=== PATIENT | male | born 1965 | race Caucasian/White ===

== ENCOUNTER 2024-02-23 15:17 | Inpatient (IN) | payer MEDICAID ==
[~2024-02-23] VITALS: Ht 175.3 cm; Wt 122.5 kg
[2024-02-23] MEDS ORDERED: DEXTROSE 50% 50ML SYRINGE IV PRN (15:30)
[2024-02-23] MEDS ORDERED: GLUCAGON INJ 1MG VIAL SC PRN (15:30)
[2024-02-23] MEDS ORDERED: GLUCOSE 4 GM CHEW PO PRN (15:30)
[2024-02-23] MEDS ORDERED: ONDANSETRON 4MG TAB PO PRN (15:30)
[2024-02-23] MEDS ORDERED: MIRALAX *UNIT DOSE* 17GM PACKET PO PRN (15:30)
[2024-02-23] MEDS ORDERED: ACETAMINOPHEN TAB 650MG DOSE (2X325MG) PO PRN (15:30)
[2024-02-23 16:15] VITALS: BP 154/87; TEMP 97.4; O2SAT 95
[2024-02-23] MEDS: INSULIN LISPRO (NovoLOG) PER UNIT SC SCH ×2 (17:30→20:25)
[2024-02-23] MEDS ORDERED: ACET325C5 PO (19:02)
[2024-02-23] MEDS ORDERED: CALC500T60 PO (19:02)
[2024-02-23] MEDS ORDERED: LISI10TA22 PO (19:02)
[2024-02-23] MEDS ORDERED: NICO21DI37 TD (19:02)
[2024-02-23] MEDS ORDERED: PANT40TA29 PO (19:02)
[2024-02-23] MEDS ORDERED: GLIM4TAB5 PO (19:02)
[2024-02-23] MEDS ORDERED: CLOP75TA2 PO (19:02)
[2024-02-23] MEDS ORDERED: ASPI-404 PO (19:02)
[2024-02-23] MEDS ORDERED: ATOR40TA75 PO (19:02)
[2024-02-23] MEDS ORDERED: METF500T13 PO (19:02)
[2024-02-23] MEDS ORDERED: INSU100V6 SQ (19:02)
[2024-02-23] MEDS ORDERED: GLUC1KIT IM (19:02)
[2024-02-23] MEDS ORDERED: DOCU100C16 PO (19:02)
[2024-02-23] MEDS ORDERED: ONDA4TAB6 PO (19:02)
[2024-02-23] MEDS ORDERED: HOME MED LIST COMPLETE! XX SCH (19:05)
[2024-02-23 20:13] VITALS: BP 168/84; TEMP 96; O2SAT 95
[2024-02-23] MEDS: ATORVASTATIN 20 MG TAB PO SCH (20:25)
[2024-02-23] MEDS: metFORMIN (GLUCOPHAGE) 500MG TAB PO SCH (20:25)
[2024-02-23 21:00] VITALS: BP 162/78; TEMP 97.6; O2SAT 95
[2024-02-24 05:47] LABS: HEMATOCRIT 45.5 % (42.0-52.0); MEAN CORPUSCULAR HEMOGLOBIN 29.8 pg (27.0-33.0); MEAN CORPUSCULAR VOLUME 90.5 fl (80.0-96.0); PLATELET COUNT, AUTOMATED 198 10^3/uL (150-450); RED BLOOD COUNT 5.03 10^6/uL (4.30-6.10); WHITE BLOOD COUNT 8.5 10^3/uL (4.0-10.0)
[2024-02-24 06:18] VITALS: BP 121/66; TEMP 96.8; O2SAT 97
[2024-02-24 06:38] LABS: BLOOD UREA NITROGEN 18 MG/DL (9-23); CALCIUM LEVEL 8.8 MG/DL (8.5-10.1); CARBON DIOXIDE LEVEL 25 MMOL/L (20-31); CHLORIDE LEVEL 108 MMOL/L (98-107); CREATININE FOR GFR 0.67 MG/DL (0.70-1.30); GLOMERULAR FILTRATION RATE > 60.0 (>56); GLUCOSE, FASTING 159 MG/DL (60-100); SODIUM LEVEL 138 MMOL/L (136-145)
[2024-02-24] MEDS: CLOPIDOGREL 75 MG TAB PO SCH (08:50)
[2024-02-24] MEDS: GLIMEPIRIDE 2 MG TAB PO SCH (08:50)
[2024-02-24] MEDS: ASPIRIN 325 MG TAB PO SCH (08:50)
[2024-02-24] MEDS: PANTOPRAZOLE 40MG TAB (PROTONIX) PO SCH (08:50)
[2024-02-24] MEDS: ENOXAPARIN 40MG/0.4ML SYRINGE (J1650 PER 10MG) SC SCH (08:51)
[2024-02-24] MEDS: NICOTINE 21MG/24HR 1 EA TRANSDERMAL TD SCH (08:53)
[2024-02-24 14:11] VITALS: BP 148/86; TEMP 97.2; O2SAT 95
[2024-02-24 20:22] VITALS: BP 145/78; TEMP 97.8; O2SAT 96
[2024-02-24] MEDS ORDERED: NYSTATIN CREAM 15GM TOP SCH ×2 (21:00)
[2024-02-25 06:48] VITALS: BP 140/80; TEMP 97.8; O2SAT 95
[2024-02-25 14:00] VITALS: BP 152/72; TEMP 97.9; O2SAT 96
[2024-02-25 17:49] VITALS: BP 166/72; TEMP 97.8; O2SAT 99
[2024-02-25 20:00] VITALS: BP 134/74; TEMP 97.5; O2SAT 96
[2024-02-25] MEDS: NYSTATIN OINTMENT 15 GM TOP SCH (20:33)
[2024-02-26 06:00] VITALS: BP 121/61; TEMP 97.8; O2SAT 94
[2024-02-26 06:27] LABS: HEMATOCRIT 44.5 % (42.0-52.0); HEMOGLOBIN 14.8 g/dl (13.5-17.5); MEAN CORPUSCULAR HEMOGLOBIN 30.4 pg (27.0-33.0); MEAN CORPUSCULAR HGB CONC 33.3 g/dl (32.0-36.5); MEAN CORPUSCULAR VOLUME 91.4 fl (80.0-96.0); PLATELET COUNT, AUTOMATED 222 10^3/uL (150-450); RED BLOOD COUNT 4.87 10^6/uL (4.30-6.10); WHITE BLOOD COUNT 8.5 10^3/uL (4.0-10.0)
[2024-02-26 14:00] VITALS: BP 133/87; TEMP 97.3; O2SAT 97
[2024-02-26 20:00] VITALS: BP 153/77; TEMP 97.9; O2SAT 96
[2024-02-27 06:42] VITALS: BP 152/69; TEMP 97.9; O2SAT 95
[2024-02-27] MEDS ORDERED: ISOVUE-370 76% 100ML VIAL As Ordered ONE (09:43)
[2024-02-27 11:37] LABS: HEMATOCRIT 42.9 % (42.0-52.0); HEMOGLOBIN 14.4 g/dl (13.5-17.5); MEAN CORPUSCULAR HEMOGLOBIN 30.5 pg (27.0-33.0); MEAN CORPUSCULAR HGB CONC 33.6 g/dl (32.0-36.5); MEAN CORPUSCULAR VOLUME 90.9 fl (80.0-96.0); PLATELET COUNT, AUTOMATED 230 10^3/uL (150-450); RED BLOOD COUNT 4.72 10^6/uL (4.30-6.10); WHITE BLOOD COUNT 9.2 10^3/uL (4.0-10.0)
[2024-02-27 12:09] LABS: ALBUMIN 3.2 G/DL (3.2-5.2); ALKALINE PHOSPHATASE 83 U/L (46-116); ALT/SGPT 34 U/L (7.0-40); AST/SGOT 19 U/L (<34); BILIRUBIN,TOTAL 0.3 MG/DL (0.3-1.2); BLOOD UREA NITROGEN 16 MG/DL (9-23); CALCIUM LEVEL 8.5 MG/DL (8.5-10.1); CARBON DIOXIDE LEVEL 24 MMOL/L (20-31); CHLORIDE LEVEL 105 MMOL/L (98-107); CREATININE FOR GFR 0.61 MG/DL (0.70-1.30); GLOMERULAR FILTRATION RATE > 60.0 (>56); GLUCOSE, FASTING 183 MG/DL (60-100); SODIUM LEVEL 137 MMOL/L (136-145); TOTAL PROTEIN 6.1 G/DL (5.7-8.2)
[2024-02-27 14:00] VITALS: BP 140/75; TEMP 97.6; O2SAT 97
[2024-02-27] MEDS: ESCITALOPRAM OXALATE 10 MG TAB (LEXAPRO) PO SCH (15:26)
[2024-02-27] MEDS: MAG SULF 1GM/100ML (MAG RUN) 1 GM in IV 1 EA IV ONE (15:26)
[2024-02-27 20:00] VITALS: BP 137/66; TEMP 97; O2SAT 96
[2024-02-28 06:00] VITALS: BP 155/77; TEMP 98.2; O2SAT 97
[2024-02-28 13:24] LABS: COLLAGEN EPINEPHRINE > 300 SECONDS (74-162)
[2024-02-28 13:41] LABS: COLLAGEN ADP 82 SECONDS (56-103)
[2024-02-28 14:00] VITALS: BP 148/80; TEMP 97.1; O2SAT 97
[2024-02-28 19:27] VITALS: TEMP 97.5; O2SAT 92
[2024-02-28 19:46] VITALS: BP 164/72
[2024-02-29 05:34] VITALS: BP 151/72; TEMP 97.5; O2SAT 93
[2024-02-29 06:54] LABS: BASO # 0.1 10^3/uL (0.0-0.2); BASO % 0.6 % (0.0-1.0); EOS # 0.2 10^3/uL (0.0-0.5); EOS % 2.7 % (0.0-3.0); HEMATOCRIT 42.8 % (42.0-52.0); HEMOGLOBIN 14.2 g/dl (13.5-17.5); LYMPH % 22.6 % (24.0-44.0); MEAN CORPUSCULAR HEMOGLOBIN 30.2 pg (27.0-33.0); MEAN CORPUSCULAR HGB CONC 33.2 g/dl (32.0-36.5); MEAN CORPUSCULAR VOLUME 91.1 fl (80.0-96.0); MONO # 0.7 10^3/uL (0.0-0.8); MONO % 7.4 % (2.0-8.0); NEUTROPHILS # 5.9 10^3/uL (1.5-8.5); NEUTROPHILS % 66.4 % (36.0-66.0); PLATELET COUNT, AUTOMATED 230 10^3/uL (150-450); WHITE BLOOD COUNT 8.9 10^3/uL (4.0-10.0)
[2024-02-29 07:21] LABS: BLOOD UREA NITROGEN 14 MG/DL (9-23); CALCIUM LEVEL 9.1 MG/DL (8.5-10.1); CARBON DIOXIDE LEVEL 26 MMOL/L (20-31); CHLORIDE LEVEL 105 MMOL/L (98-107); CREATININE FOR GFR 0.62 MG/DL (0.70-1.30); GLOMERULAR FILTRATION RATE > 60.0 (>56); GLUCOSE, FASTING 148 MG/DL (60-100); MAGNESIUM LEVEL 1.7 MG/DL (1.8-2.4); POTASSIUM SERUM 4.1 MMOL/L (3.5-5.1); SODIUM LEVEL 138 MMOL/L (136-145)
[2024-02-29] MEDS: MAG SULF 1GM/100ML (MAG RUN) 1 GM in IV 1 EA IV ONE (12:15)
[2024-02-29 14:00] VITALS: BP 152/76; TEMP 97.6; O2SAT 96
[2024-02-29] MEDS: metFORMIN (GLUCOPHAGE) 500MG TAB PO SCH (17:13)
[2024-02-29 20:00] VITALS: BP 142/85; TEMP 96.7; O2SAT 96
[2024-02-29] MEDS: RAMELTEON 8 MG TAB (ROZEREM) PO SCH (20:36)
[2024-03-01 06:00] VITALS: BP 139/69; TEMP 97.6; O2SAT 96
[2024-03-01] MEDS ORDERED: ARTIFICIAL TEARS DROPS 15ML BTL (VISINE DRY RELIEF) OU PRN (14:05)
[2024-03-01 14:32] VITALS: BP 115/58; TEMP 97.1; O2SAT 95
[2024-03-01 15:13] VITALS: BP 132/60
[2024-03-01 15:52] LABS: HEMATOCRIT 43.6 % (42.0-52.0); HEMOGLOBIN 14.6 g/dl (13.5-17.5); MEAN CORPUSCULAR HEMOGLOBIN 30.3 pg (27.0-33.0); MEAN CORPUSCULAR HGB CONC 33.5 g/dl (32.0-36.5); MEAN CORPUSCULAR VOLUME 90.5 fl (80.0-96.0); PLATELET COUNT, AUTOMATED 280 10^3/uL (150-450); RED BLOOD COUNT 4.82 10^6/uL (4.30-6.10); WHITE BLOOD COUNT 9.4 10^3/uL (4.0-10.0)
[2024-03-01 16:13] VITALS: BP 150/70; O2SAT 96
[2024-03-01 16:13] LABS: INR 1.03; PARTIAL THROMBOPLASTIN TIME 30.1 SECONDS (24.8-34.2); PROTHROMBIN TIME 13.2 SECONDS (12.5-14.5)
[2024-03-01 16:23] LABS: ALBUMIN 3.5 G/DL (3.2-5.2); ALKALINE PHOSPHATASE 82 U/L (46-116); ALT/SGPT 31 U/L (7.0-40); AST/SGOT 16 U/L (<34); BILIRUBIN,TOTAL 0.3 MG/DL (0.3-1.2); BLOOD UREA NITROGEN 22 MG/DL (9-23); CALCIUM LEVEL 9.7 MG/DL (8.5-10.1); CARBON DIOXIDE LEVEL 27 MMOL/L (20-31); CHLORIDE LEVEL 105 MMOL/L (98-107); CHOLESTEROL LEVEL 127 MG/DL (<200); CHOLESTEROL RISK RATIO 4.36 (<5); CREATININE FOR GFR 0.88 MG/DL (0.70-1.30); GLOMERULAR FILTRATION RATE > 60.0 (>56); GLUCOSE, FASTING 80 MG/DL (60-100); HDL CHOLESTEROL 29.1 MG/DL (>40); LDL CHOLESTEROL 61.5 MG/DL (<100); NON-HDL-C 97.9 MG/DL; SODIUM LEVEL 140 MMOL/L (136-145); TOTAL PROTEIN 6.6 G/DL (5.7-8.2); TRIGLYCERIDES LEVEL 182 MG/DL (<150)
[2024-03-01] MEDS ORDERED: PARoxetine 20MG TABLET PO SCH (21:00)
[2024-03-02] MEDS ORDERED: lisinopriL 5 MG TAB PO SCH (09:00)
[2024-03-02 15:00] VITALS: BP 171/80; TEMP 97.6; O2SAT 96
[2024-03-02] MEDS ORDERED: ARTIFICIAL TEARS DROPS 15ML BTL (VISINE DRY RELIEF) OU PRN (16:45)
[2024-03-02] MEDS ORDERED: MIRALAX *UNIT DOSE* 17GM PACKET PO PRN (16:45)
[2024-03-02] MEDS ORDERED: GLUCOSE 4 GM CHEW PO PRN (17:00)
[2024-03-02] MEDS ORDERED: DEXTROSE 50% 50ML SYRINGE IV PRN (17:00)
[2024-03-02] MEDS ORDERED: GLUCAGON INJ 1MG VIAL SC PRN (17:00)
[2024-03-02] MEDS: INSULIN LISPRO (NovoLOG) PER UNIT SC SCH ×2 (17:30→20:19)
[2024-03-02 19:28] VITALS: BP 144/68; TEMP 97.9; O2SAT 97
[2024-03-02] MEDS: RAMELTEON 8 MG TAB (ROZEREM) PO SCH (20:18)
[2024-03-02] MEDS: ATORVASTATIN 20 MG TAB PO SCH (20:18)
[2024-03-02] MEDS: PARoxetine 20MG TABLET PO SCH (20:18)
[2024-03-02] MEDS: metFORMIN (GLUCOPHAGE) 1000MG TABLET PO SCH (20:19)
[2024-03-03 06:16] VITALS: BP 136/72; TEMP 98.1; O2SAT 95
[2024-03-03] MEDS: CLOPIDOGREL 75 MG TAB PO SCH (07:58)
[2024-03-03] MEDS: GLIMEPIRIDE 2 MG TAB PO SCH (07:58)
[2024-03-03] MEDS: ASPIRIN 325 MG TAB PO SCH (07:58)
[2024-03-03] MEDS: PANTOPRAZOLE 40MG TAB (PROTONIX) PO SCH (07:59)
[2024-03-03] MEDS: lisinopriL 5 MG TAB PO SCH (07:59)
[2024-03-03] MEDS: ENOXAPARIN 40MG/0.4ML SYRINGE (J1650 PER 10MG) SC SCH ×2 (07:59→21:05)
[2024-03-03] MEDS: NICOTINE 21MG/24HR 1 EA TRANSDERMAL TD SCH (08:00)
[2024-03-03 14:00] VITALS: BP 142/64; TEMP 98; O2SAT 96
[2024-03-03 20:12] VITALS: BP 145/71; TEMP 97.5; O2SAT 97
[2024-03-03] MEDS: ACETAMINOPHEN TAB 650MG DOSE (2X325MG) PO PRN (21:04)
[2024-03-04 06:27] VITALS: BP 170/76; TEMP 97.3; O2SAT 95
[2024-03-04] MEDS: ASPIRIN 81MG ENTERIC TABLET PO SCH (08:11)
[2024-03-04 14:00] VITALS: BP 151/80; TEMP 97.5; O2SAT 96
[2024-03-04 19:21] VITALS: BP 137/74; TEMP 97.6; O2SAT 92
[2024-03-05 05:37] VITALS: BP 130/61; TEMP 97.1; O2SAT 98
[2024-03-05 07:23] LABS: BASO # 0.1 10^3/uL (0.0-0.2); BASO % 0.5 % (0.0-1.0); EOS # 0.2 10^3/uL (0.0-0.5); EOS % 2.4 % (0.0-3.0); HEMOGLOBIN 14.6 g/dl (13.5-17.5); LYMPH # 2.2 10^3/uL (1.5-5.0); LYMPH % 23.8 % (24.0-44.0); MEAN CORPUSCULAR HEMOGLOBIN 30.2 pg (27.0-33.0); MEAN CORPUSCULAR HGB CONC 33.2 g/dl (32.0-36.5); MEAN CORPUSCULAR VOLUME 90.9 fl (80.0-96.0); MONO # 0.6 10^3/uL (0.0-0.8); MONO % 6.2 % (2.0-8.0); NEUTROPHILS # 6.2 10^3/uL (1.5-8.5); NEUTROPHILS % 66.8 % (36.0-66.0); PLATELET COUNT, AUTOMATED 266 10^3/uL (150-450); RED BLOOD COUNT 4.84 10^6/uL (4.30-6.10); WHITE BLOOD COUNT 9.3 10^3/uL (4.0-10.0)
[2024-03-05 07:52] LABS: BLOOD UREA NITROGEN 13 MG/DL (9-23); CALCIUM LEVEL 8.7 MG/DL (8.5-10.1); CARBON DIOXIDE LEVEL 30 MMOL/L (20-31); CHLORIDE LEVEL 104 MMOL/L (98-107); CREATININE FOR GFR 0.68 MG/DL (0.70-1.30); GLOMERULAR FILTRATION RATE > 60.0 (>56); GLUCOSE, FASTING 126 MG/DL (60-100); MAGNESIUM LEVEL 1.6 MG/DL (1.8-2.4); POTASSIUM SERUM 4.4 MMOL/L (3.5-5.1); SODIUM LEVEL 140 MMOL/L (136-145)
[2024-03-05] MEDS: MAGNESIUM OXIDE 400MG TAB (MAG-OX) PO SCH (13:43)
[2024-03-05 14:00] VITALS: BP 142/67; TEMP 97.8; O2SAT 96
[2024-03-05 20:00] VITALS: BP 147/81; TEMP 97.7; O2SAT 94
[2024-03-06 06:00] VITALS: BP 138/68; TEMP 97.1; O2SAT 97
[2024-03-06 14:00] VITALS: BP 131/63; TEMP 97.1; O2SAT 97
[2024-03-06 22:00] VITALS: BP 140/70; TEMP 97.7; O2SAT 93
[2024-03-07 06:22] VITALS: BP 142/72; TEMP 97.6; O2SAT 95
[2024-03-07 14:00] VITALS: BP 130/70; TEMP 97.4; O2SAT 96
[2024-03-07 19:56] VITALS: BP 142/72; TEMP 95.9; O2SAT 94
[2024-03-08 06:39] VITALS: BP 139/67; TEMP 97.9; O2SAT 92
[2024-03-08 06:48] LABS: HEMATOCRIT 44.8 % (42.0-52.0); HEMOGLOBIN 15.1 g/dl (13.5-17.5); MEAN CORPUSCULAR HEMOGLOBIN 29.8 pg (27.0-33.0); MEAN CORPUSCULAR HGB CONC 33.7 g/dl (32.0-36.5); MEAN CORPUSCULAR VOLUME 88.4 fl (80.0-96.0); PLATELET COUNT, AUTOMATED 275 10^3/uL (150-450); RED BLOOD COUNT 5.07 10^6/uL (4.30-6.10); WHITE BLOOD COUNT 9.5 10^3/uL (4.0-10.0)
[2024-03-08 07:10] LABS: BLOOD UREA NITROGEN 17 MG/DL (9-23); CALCIUM LEVEL 9.1 MG/DL (8.5-10.1); CARBON DIOXIDE LEVEL 24 MMOL/L (20-31); CHLORIDE LEVEL 106 MMOL/L (98-107); CREATININE FOR GFR 0.67 MG/DL (0.70-1.30); GLOMERULAR FILTRATION RATE > 60.0 (>56); GLUCOSE, FASTING 106 MG/DL (60-100); MAGNESIUM LEVEL 1.8 MG/DL (1.8-2.4); POTASSIUM SERUM 4.5 MMOL/L (3.5-5.1); SODIUM LEVEL 138 MMOL/L (136-145)
[2024-03-08] MEDS: LOPERAMIDE 2 MG CAPLET PO PRN (12:22)
[2024-03-08 14:00] VITALS: BP 137/89; TEMP 97.4; O2SAT 96
[2024-03-08 20:15] VITALS: BP 126/70; TEMP 97.3; O2SAT 96
[2024-03-09 06:35] VITALS: BP 135/77; TEMP 98; O2SAT 97
[2024-03-09 14:32] VITALS: BP 142/63; TEMP 97.3; O2SAT 95
[2024-03-09 20:00] VITALS: BP 138/70; TEMP 97.2; O2SAT 97
[2024-03-10 06:00] VITALS: BP 118/61; TEMP 97; O2SAT 94
[2024-03-10 14:00] VITALS: BP 127/77; TEMP 97; O2SAT 95
[2024-03-10 20:00] VITALS: BP 131/69; TEMP 98.2; O2SAT 94
[2024-03-11 05:31] VITALS: BP 131/60; TEMP 98.1; O2SAT 97
[2024-03-11 05:37] LABS: HEMOGLOBIN 13.7 g/dl (13.5-17.5); MEAN CORPUSCULAR HEMOGLOBIN 29.9 pg (27.0-33.0); MEAN CORPUSCULAR HGB CONC 33.4 g/dl (32.0-36.5); MEAN CORPUSCULAR VOLUME 89.5 fl (80.0-96.0); PLATELET COUNT, AUTOMATED 258 10^3/uL (150-450); RED BLOOD COUNT 4.58 10^6/uL (4.30-6.10)
[2024-03-11 14:00] VITALS: BP 134/67; TEMP 97.2; O2SAT 98
[2024-03-11 20:02] VITALS: BP 126/77; TEMP 96.9; O2SAT 98
[2024-03-12 06:05] VITALS: BP 136/64; TEMP 96.7; O2SAT 97
[2024-03-12 14:00] VITALS: BP 128/66; TEMP 97.1; O2SAT 97
[2024-03-12] MEDS ORDERED: NICO21DI37 TD ×2 (15:39→15:49)
[2024-03-12] MEDS ORDERED: PARO20TA3 PO ×2 (15:39→15:47)
[2024-03-12] MEDS ORDERED: PANT40TA29 PO ×2 (15:39→15:49)
[2024-03-12] MEDS ORDERED: METF10004 PO ×2 (15:39→15:47)
[2024-03-12] MEDS ORDERED: ATOR40TA75 PO ×2 (15:39→15:49)
[2024-03-12] MEDS ORDERED: CLOP75TA2 PO ×2 (15:39→15:49)
[2024-03-12] MEDS ORDERED: ASPI81TAEC PO ×2 (15:39→15:47)
[2024-03-12] MEDS ORDERED: LISI5TAB11 PO ×2 (15:39→15:47)
[2024-03-12] MEDS ORDERED: GLIM4TAB5 PO ×2 (15:39→15:49)
[2024-03-12 20:00] VITALS: BP 139/68; TEMP 97.9; O2SAT 84
[2024-03-13 06:00] VITALS: BP 127/61; TEMP 97.8; O2SAT 95
[2024-03-13 08:44] VITALS: BP 125/62
[2024-03-13 14:00] VITALS: BP 136/64; TEMP 97.5; O2SAT 97
== END 2024-03-13 14:50 | disposition home health service (06) | DRG 58 ==
LOC: M PM&R 16:10 → UNDOADMIN 16:10 → M PCU 03-01 16:39 → M PM&R 03-01 16:39 → UNDODISIN 03-01 18:04 → M PM&R 03-02 15:00 → UNDOADMIN 03-02 15:00 → UNDODISIN 03-13 14:50
PROVIDERS: ADMIT Student in an Organized Health Care Education/Training Program; ATTEND Student in an Organized Health Care Education/Training Program
DX: I69.351 Hemiplegia and hemiparesis following cerebral infarction affecting right dominant side (principal); E11.65 Type 2 diabetes mellitus with hyperglycemia; I10 Essential (primary) hypertension; E66.01 Morbid (severe) obesity due to excess calories; Z68.41 Body mass index [BMI] 40.0-44.9, adult; I69.318 Other symptoms and signs involving cognitive functions following cerebral infarction; I69.322 Dysarthria following cerebral infarction; I69.392 Facial weakness following cerebral infarction; I69.320 Aphasia following cerebral infarction; I69.315 Cognitive social or emotional deficit following cerebral infarction; G47.00 Insomnia, unspecified; F17.210 Nicotine dependence, cigarettes, uncomplicated; E78.5 Hyperlipidemia, unspecified; K21.9 Gastro-esophageal reflux disease without esophagitis; Z74.09 Other reduced mobility; Z74.1 Need for assistance with personal care; Z79.82 Long term (current) use of aspirin; Z79.84 Long term (current) use of oral hypoglycemic drugs; Z79.899 Other long term (current) drug therapy; Z88.0 Allergy status to penicillin; Z91.018 Allergy to other foods; R47.1 Dysarthria and anarthria; F09 Unspecified mental disorder due to known physiological condition

== ENCOUNTER 2024-03-01 16:00 | Inpatient (IN) | payer MEDICAID ==
[~2024-03-01] VITALS: Ht 180.3 cm; Wt 123.0 kg
[2024-03-01 16:00] VITALS: BP 160/82; TEMP 98.1; O2SAT 95
[~2024-03-01 16:00] MED LIST: ACET325C5 PO; ASPI-404 PO; ATOR40TA75 PO; CALC500T60 PO; CLOP75TA2 PO; DOCU100C16 PO; GLIM4TAB5 PO; GLUC1KIT IM; INSU100V6 SQ; LISI10TA22 PO; METF500T13 PO; NICO21DI37 TD; ONDA4TAB6 PO; PANT40TA29 PO
[2024-03-01] MEDS ORDERED: ONDANSETRON 4MG 2ML VIAL IV PRN (16:35)
[2024-03-01] MEDS ORDERED: CitaloPRAM (CeleXA) 10 MG TABLET PO ONE (16:35)
[2024-03-01] MEDS ORDERED: GLUCAGON INJ 1MG VIAL SC PRN (17:15)
[2024-03-01] MEDS ORDERED: GLUCOSE 4 GM CHEW PO PRN (17:15)
[2024-03-01 17:21] LABS: BASO % 0.5 % (0.0-1.0); EOS % 1.4 % (0.0-3.0); HEMATOCRIT 41.7 % (42.0-52.0); HEMOGLOBIN 13.9 g/dl (13.5-17.5); LYMPH % 16.3 % (24.0-44.0); MEAN CORPUSCULAR HEMOGLOBIN 30.3 pg (27.0-33.0); MEAN CORPUSCULAR HGB CONC 33.3 g/dl (32.0-36.5); MEAN CORPUSCULAR VOLUME 90.8 fl (80.0-96.0); MONO % 6.6 % (2.0-8.0); NEUTROPHILS % 74.9 % (36.0-66.0); PLATELET COUNT, AUTOMATED 249 10^3/uL (150-450); RED BLOOD COUNT 4.59 10^6/uL (4.30-6.10); WHITE BLOOD COUNT 10.4 10^3/uL (4.0-10.0)
[2024-03-01 17:22] LABS: BASO # 0.1 10^3/uL (0.0-0.2); EOS # 0.2 10^3/uL (0.0-0.5); LYMPH # 1.7 10^3/uL (1.5-5.0); MONO # 0.7 10^3/uL (0.0-0.8); NEUTROPHILS # 7.8 10^3/uL (1.5-8.5)
[2024-03-01] MEDS: INSULIN LISPRO (NovoLOG) PER UNIT SC SCH ×2 (17:30→20:13)
[2024-03-01 17:37] LABS: INR 1.02; PARTIAL THROMBOPLASTIN TIME 29.3 SECONDS (24.8-34.2); PROTHROMBIN TIME 13.1 SECONDS (12.5-14.5)
[2024-03-01 17:55] LABS: ALBUMIN 3.3 G/DL (3.2-5.2); ALKALINE PHOSPHATASE 77 U/L (46-116); ALT/SGPT 30 U/L (7.0-40); AST/SGOT 19 U/L (<34); BILIRUBIN,TOTAL 0.2 MG/DL (0.3-1.2); BLOOD UREA NITROGEN 23 MG/DL (9-23); CALCIUM LEVEL 9.3 MG/DL (8.5-10.1); CARBON DIOXIDE LEVEL 26 MMOL/L (20-31); CHLORIDE LEVEL 104 MMOL/L (98-107); CHOLESTEROL LEVEL 118 MG/DL (<200); CK-MB VALUE MASS 1.7 NG/ML (<3.6); CPK CREATINE PHOSPHOKINASE 80 U/L (46-171); CREATININE FOR GFR 0.77 MG/DL (0.70-1.30); GLOMERULAR FILTRATION RATE > 60.0 (>56); GLUCOSE, FASTING 100 MG/DL (60-100); MB/CK RELATIVE INDEX 2.12 (< OR =4); SODIUM LEVEL 138 MMOL/L (136-145); TRIGLYCERIDES LEVEL 165 MG/DL (<150)
[2024-03-01 18:11] LABS: BILIRUBIN,DIRECT < 0.1 MG/DL (<0.4); CHOLESTEROL RISK RATIO 4.45 (<5); HDL CHOLESTEROL 26.5 MG/DL (>40); LDL CHOLESTEROL 58.5 MG/DL (<100); NON-HDL-C 91.5 MG/DL; TOTAL PROTEIN 6.2 G/DL (5.7-8.2)
[2024-03-01 20:10] VITALS: BP 142/73; TEMP 97.9; O2SAT 95
[2024-03-01] MEDS: ATORVASTATIN 20 MG TAB PO SCH (20:13)
[2024-03-01] MEDS: RAMELTEON 8 MG TAB (ROZEREM) PO SCH (20:13)
[2024-03-01] MEDS: PARoxetine 20MG TABLET PO SCH (20:13)
[2024-03-01 23:26] VITALS: BP 134/70; TEMP 97.4; O2SAT 94
[2024-03-02 03:36] VITALS: BP 154/82; TEMP 97.1; O2SAT 96
[2024-03-02 05:14] LABS: HEMATOCRIT 42.3 % (42.0-52.0); HEMOGLOBIN 14.1 g/dl (13.5-17.5); MEAN CORPUSCULAR HEMOGLOBIN 30.2 pg (27.0-33.0); MEAN CORPUSCULAR HGB CONC 33.3 g/dl (32.0-36.5); MEAN CORPUSCULAR VOLUME 90.6 fl (80.0-96.0); PLATELET COUNT, AUTOMATED 255 10^3/uL (150-450); RED BLOOD COUNT 4.67 10^6/uL (4.30-6.10)
[2024-03-02 05:38] LABS: ALBUMIN 3.3 G/DL (3.2-5.2); ALKALINE PHOSPHATASE 78 U/L (46-116); ALT/SGPT 26 U/L (7.0-40); AST/SGOT 18 U/L (<34); BILIRUBIN,TOTAL 0.3 MG/DL (0.3-1.2); BLOOD UREA NITROGEN 20 MG/DL (9-23); CALCIUM LEVEL 8.9 MG/DL (8.5-10.1); CARBON DIOXIDE LEVEL 26 MMOL/L (20-31); CHLORIDE LEVEL 106 MMOL/L (98-107); CHOLESTEROL LEVEL 115 MG/DL (<200); CHOLESTEROL RISK RATIO 4.35 (<5); CREATININE FOR GFR 0.67 MG/DL (0.70-1.30); GLOMERULAR FILTRATION RATE > 60.0 (>56); GLUCOSE, FASTING 115 MG/DL (60-100); HDL CHOLESTEROL 26.4 MG/DL (>40); MAGNESIUM LEVEL 1.8 MG/DL (1.8-2.4); NON-HDL-C 88.6 MG/DL; SODIUM LEVEL 139 MMOL/L (136-145); TOTAL PROTEIN 6.1 G/DL (5.7-8.2); TRIGLYCERIDES LEVEL 103 MG/DL (<150)
[2024-03-02] MEDS ORDERED: HOME MED LIST COMPLETE! XX SCH (07:15)
[2024-03-02 07:27] VITALS: BP 158/87; TEMP 97.2; O2SAT 91
[2024-03-02 09:00] VITALS: BP 158/87
[2024-03-02] MEDS: lisinopriL 5 MG TAB PO SCH (09:00)
[2024-03-02] MEDS: ASPIRIN 81MG CHEW TABLET FT SCH (09:42)
[2024-03-02] MEDS: PANTOPRAZOLE 40MG TAB (PROTONIX) PO SCH (09:42)
[2024-03-02] MEDS: CLOPIDOGREL 75 MG TAB PO SCH (09:42)
[2024-03-02] MEDS: NICOTINE 21MG/24HR 1 EA TRANSDERMAL TD SCH (09:43)
[2024-03-02] MEDS: ENOXAPARIN 40MG/0.4ML SYRINGE (J1650 PER 10MG) SC SCH (09:43)
== END 2024-03-02 14:43 | DRG 58 ==
LOC: M PCU 16:05
PROVIDERS: ADMIT Hospitalist; ATTEND Hospitalist
PROC: B246ZZZ Ultrasonography of Right and Left Heart (ICD-10-PCS; principal; 2024-03-01)
DX: I69.351 Hemiplegia and hemiparesis following cerebral infarction affecting right dominant side (principal); E11.65 Type 2 diabetes mellitus with hyperglycemia; I10 Essential (primary) hypertension; G81.91 Hemiplegia, unspecified affecting right dominant side; E78.5 Hyperlipidemia, unspecified; E66.9 Obesity, unspecified; I69.322 Dysarthria following cerebral infarction; F17.210 Nicotine dependence, cigarettes, uncomplicated; Z79.02 Long term (current) use of antithrombotics/antiplatelets; Z79.4 Long term (current) use of insulin; Z79.82 Long term (current) use of aspirin; Z79.899 Other long term (current) drug therapy; Z88.0 Allergy status to penicillin; Z91.018 Allergy to other foods; Z91.02 Food additives allergy status; Z68.37 Body mass index [BMI] 37.0-37.9, adult

== ENCOUNTER → 2024-04-06 | Outpatient (REF) | payer MEDICAID ==
[~2024-04-06] MED LIST changes: +ASPI81TAEC PO; +LISI5TAB11 PO; +METF10004 PO; +PARO20TA3 PO
[2024-04-06 17:03] LABS: CREATININE, URINE 90.9 MG/DL; MAU/CREAT RATIO 4.4 MCG/MG (0.0-30.0)
[2024-04-09 13:21] LABS: ALBUMIN 3.8 G/DL (3.2-5.2); ALKALINE PHOSPHATASE 85 U/L (46-116); ALT/SGPT 20 U/L (7.0-40); AST/SGOT 9 U/L (<34); BILIRUBIN,TOTAL 0.3 MG/DL (0.3-1.2); BLOOD UREA NITROGEN 15 MG/DL (9-23); CALCIUM LEVEL 9.7 MG/DL (8.5-10.1); CARBON DIOXIDE LEVEL 26 MMOL/L (20-31); CHLORIDE LEVEL 105 MMOL/L (98-107); CHOLESTEROL LEVEL 120 MG/DL (<200); CHOLESTEROL RISK RATIO 3.64 (<5); CREATININE FOR GFR 0.67 MG/DL (0.70-1.30); GLOMERULAR FILTRATION RATE > 60.0 (>56); GLUCOSE, FASTING 95 MG/DL (60-100); HDL CHOLESTEROL 32.9 MG/DL (>40); LDL CHOLESTEROL 57.5 MG/DL (<100); NON-HDL-C 87.1 MG/DL; POTASSIUM SERUM 4.2 MMOL/L (3.5-5.1); SODIUM LEVEL 137 MMOL/L (136-145); TOTAL PROTEIN 6.7 G/DL (5.7-8.2); TRIGLYCERIDES LEVEL 148 MG/DL (<150)
[2024-04-09 13:23] LABS: THYROID STIMULATING HORMONE 2.399 uIU/ML (0.55-4.78)
[2024-04-09 13:44] LABS: HEMOGLOBIN A1c 8.2 % (4.0-6.0)
== END ==
LOC: M LAB REF 16:14
PROVIDERS: ATTEND Nurse Practitioner Family
DX: E11.8 Type 2 diabetes mellitus with unspecified complications (principal); Z11.9 Encounter for screening for infectious and parasitic diseases, unspecified

== ENCOUNTER → 2024-06-12 | Outpatient (REF) | payer MEDICAID, OTHER ==
[~2024-06-12] MED LIST changes: +ONDA-282 PO; -ONDA4TAB6 PO
[2024-06-13 15:06] LABS: BLOOD UREA NITROGEN 17 MG/DL (9-23); CALCIUM LEVEL 9.2 MG/DL (8.5-10.1); CARBON DIOXIDE LEVEL 23 MMOL/L (20-31); CHLORIDE LEVEL 107 MMOL/L (98-107); CREATININE FOR GFR 0.83 MG/DL (0.70-1.30); GLOMERULAR FILTRATION RATE > 60.0 (>56); GLUCOSE, FASTING 74 MG/DL (60-100); POTASSIUM SERUM 4.5 MMOL/L (3.5-5.1); SODIUM LEVEL 136 MMOL/L (136-145)
[2024-06-13 15:19] LABS: HEMOGLOBIN A1c 5.7 % (4.0-6.0)
== END ==
LOC: M LAB REF 12:38
PROVIDERS: ATTEND Nurse Practitioner Family
DX: I10 Essential (primary) hypertension (principal); E11.8 Type 2 diabetes mellitus with unspecified complications

== ENCOUNTER → 2024-07-17 | Outpatient (REF) | LOC: M PLAIMG 14:47 | PROVIDERS: ATTEND Internal Medicine | DX: R52 Pain, unspecified (principal) ==